=== PATIENT | female | born 1930 | race Caucasian/White ===

== ENCOUNTER 2017-09-24 03:50 | Inpatient (IN) | payer MEDICARE, OTHER ==
[2017-09-24] MEDS: SOD CHLORIDE 0.9% 1,000 ML IV ×2 (04:24→15:06)
[2017-09-24 04:28] LABS: ADD MAN DIFF? NO; BASOPHIL # 0.1 10^3/ul (0.0-0.1); BASOPHILS % 0.6 % (0.0-2.0); EOSINOPHILS # 0.2 10^3/ul (0.0-0.5); EOSINOPHILS % 1.3 % (0.0-7.0); LYMPHOCYTES # 3.4 10^3/ul (0.8-2.9); LYMPHOCYTES % 23.7 % (15.0-51.0); MEAN CORPUSCULAR HEMOGLOBIN 30.1 pg (29.0-33.0); MEAN CORPUSCULAR HGB CONC 32.3 g/dl (32.0-37.0); MEAN CORPUSCULAR VOLUME 93.4 fl (82.0-101.0); MEAN PLATELET VOLUME 10.7 fl (7.4-10.4); MONOCYTES % 6.9 % (0.0-11.0); NEUTROPHIL # 9.2 10^3/ul (1.6-7.5); NEUTROPHILS % 64.3 % (39.0-77.0); PLATELET COUNT 233 10^3/UL (140-415); RED BLOOD COUNT 3.32 10^6/ul (4.20-5.40); RED CELL DISTRIBUTION WIDTH 12.1 % (11.5-14.5)
[2017-09-24 04:28] LABS: WHITE BLOOD COUNT 14.3 10^3/ul (4.8-10.8)
[2017-09-24 04:47] LABS: INR 1.02; PROTIME 13.5 Sec (11.9-14.9); PT RATIO 1.1
[2017-09-24 04:48] LABS: PARTIAL THROMBOPLASTIN TIME 22.9 Sec (25.0-35.0)
[2017-09-24 04:52] LABS: ALANINE AMINOTRANSFERASE 15 IU/L (13-69); ALBUMIN 3.3 g/dl (3.3-4.9); ALBUMIN/GLOBULIN RATIO 1.03; ALKALINE PHOSPHATASE 61 IU/L (42-121); ANION GAP 16 (8-16); ASPARTATE AMINO TRANSFERASE 18 IU/L (15-46); BILIRUBIN,INDIRECT 0.3 mg/dl (0-1.1); BILIRUBIN,TOTAL 0.3 mg/dl (0.2-1.3); BLOOD UREA NITROGEN 73 mg/dl (7-20); CALCIUM 9.5 mg/dl (8.4-10.2); CARBON DIOXIDE 22 mmol/L (21-31); CHLORIDE 107 mmol/L (97-110); GLUCOSE 318 mg/dl (70-220); LIPASE 152 U/L (23-300); POTASSIUM 5.7 mmol/L (3.5-5.1); SODIUM 139 mmol/L (135-144); TOTAL PROTEIN 6.5 g/dl (6.1-8.1)
[2017-09-24] MEDS ORDERED: NITROGLYCERIN (SL) 0.4 MG TAB SL (10:00)
[2017-09-24] MEDS ORDERED: HYDROCODONE/APAP (5/325) TAB PO (10:00)
[2017-09-24] MEDS ORDERED: NACL 0.9% 3 ML SYG IV (10:00)
[2017-09-24] MEDS ORDERED: hydrALAzine 20 MG INJ IV (10:00)
[2017-09-24] MEDS ORDERED: DOCUSATE SODIUM 100 MG CAP PO (10:00)
[2017-09-24] MEDS ORDERED: MAGNESIUM HYDROXIDE 30ML CUP PO (10:00)
[2017-09-24] MEDS ORDERED: LORAZEPAM 2 MG INJ IV (10:00)
[2017-09-24] MEDS ORDERED: ALBUTEROL/IPRATROPIUM (NEB) 3 ML AMP HHN (10:00)
[2017-09-24] MEDS ORDERED: morphine 2 MG INJ IV (10:00)
[2017-09-24] MEDS ORDERED: NA PHOSPHATE/BIPHOS 133 ML ENEMA PR (10:00)
[2017-09-24] MEDS: NA POLYST SULFON 15 GM/60 ML BTL PO (10:09)
[2017-09-24] MEDS: PANTOPRAZOLE 40 MG INJ IV ×2 (10:09→17:18)
[2017-09-24] MEDS: SOD CHLORIDE 0.45% 1,000 ML IV (10:09)
[2017-09-24 11:04] LABS: INR 1.08; PROTIME 14.1 Sec (11.9-14.9); PT RATIO 1.1
[2017-09-24 11:05] LABS: PARTIAL THROMBOPLASTIN TIME 25.9 Sec (25.0-35.0)
[2017-09-24 11:39] LABS: FREE T4 (FREE THYROXINE) 0.83 ng/dl (0.85-1.93)
[2017-09-24] MEDS: ONDANSETRON 4 MG INJ IV (12:57)
[2017-09-24] MEDS: INSULIN ASPART [NOVOLOG] 3 ML PEN SC ×3 (13:11→20:02)
[2017-09-24] MEDS ORDERED: GLUCOSE GEL 15 GRAM TUBE PO ×2 (15:00)
[2017-09-24] MEDS ORDERED: DEXTROSE 50% 50 ML SYRINGE IV ×2 (15:00)
[2017-09-24] MEDS ORDERED: GLUCOSE GEL 15 GRAM TUBE BUCCAL (15:00)
[2017-09-24] MEDS ORDERED: GLUCAGON 1 MG INJ IM (15:00)
[2017-09-24 15:10] LABS: HEMATOCRIT 24.3 % (37.0-47.0)
[2017-09-24] MEDS: METOCLOPRAMIDE (1 MG/ML) 10 ML CUP PO (19:59)
[2017-09-24] MEDS: INSULIN GLARGINE [LANTus] (100 UNITS/ML) SYG SC (20:04)
[2017-09-24] MEDS: ATORVASTATIN 10 MG TAB PO (20:56)
[2017-09-24 22:46] LABS: HEMATOCRIT 21.1 % (37.0-47.0)
[2017-09-24 23:02] LABS: ANION GAP 9 (8-16); BLOOD UREA NITROGEN 81 mg/dl (7-20); CALCIUM 8.1 mg/dl (8.4-10.2); CARBON DIOXIDE 21 mmol/L (21-31); CHLORIDE 116 mmol/L (97-110); GLUCOSE 126 mg/dl (70-220); POTASSIUM 4.5 mmol/L (3.5-5.1); SODIUM 141 mmol/L (135-144)
[2017-09-25] MEDS: SOD CHLORIDE 0.9% 1,000 ML IV ×4 (00:05→21:43)
[2017-09-25] MEDS: METOCLOPRAMIDE (1 MG/ML) 10 ML CUP PO ×4 (00:05→17:34)
[2017-09-25] MEDS: INSULIN ASPART [NOVOLOG] 3 ML PEN SC ×6 (00:09→20:18)
[2017-09-25 05:06] LABS: ADD MAN DIFF? NO
[2017-09-25] MEDS: PANTOPRAZOLE 40 MG INJ IV ×2 (05:06→17:34)
[2017-09-25] MEDS: ACETAMINOPHEN 325 MG TAB PO (05:06)
[2017-09-25 05:21] LABS: BASOPHIL # 0.1 10^3/ul (0.0-0.1); BASOPHILS % 0.5 % (0.0-2.0); EOSINOPHILS # 0.2 10^3/ul (0.0-0.5); EOSINOPHILS % 1.5 % (0.0-7.0); HEMATOCRIT 21.4 % (37.0-47.0); LYMPHOCYTES # 4.3 10^3/ul (0.8-2.9); MEAN CORPUSCULAR HEMOGLOBIN 30.4 pg (29.0-33.0); MEAN CORPUSCULAR HGB CONC 32.7 g/dl (32.0-37.0); MONOCYTE # 0.9 10^3/ul (0.3-0.9); MONOCYTES % 6.6 % (0.0-11.0); NEUTROPHIL # 8.2 10^3/ul (1.6-7.5); NEUTROPHILS % 58.5 % (39.0-77.0); PLATELET COUNT 106 10^3/UL (140-415); RED CELL DISTRIBUTION WIDTH 12.4 % (11.5-14.5)
[2017-09-25 05:26] LABS: ADD UMIC YES; UR ASCORBIC ACID NEGATIVE (NEGATIVE); UR BACTERIA MODERATE /HPF (NONE SEEN); UR BILIRUBIN (Dip) NEGATIVE (NEGATIVE); UR BLOOD (Dip) NEGATIVE (NEGATIVE); UR CLARITY CLEAR (CLEAR); UR COLOR YELLOW (YELLOW); UR GLUCOSE (Dip) 1+ mg/dL (NEGATIVE); UR KETONES (Dip) NEGATIVE (NEGATIVE); UR LEUKOCYTE ESTERASE (Dip) TRACE Leu/ul (NEGATIVE); UR MUCUS FEW /HPF (NONE SEEN); UR NITRITE (Dip) NEGATIVE (NEGATIVE); UR RBC 1 /HPF (0-5); UR SPECIFIC GRAVITY (Dip) 1.015 (1.003-1.030); UR TOTAL PROTEIN (Dip) NEGATIVE (NEGATIVE); UR UROBILINOGEN (Dip) NEGATIVE (NEGATIVE); UR WBC 10 /HPF (0-5)
[2017-09-25 05:37] LABS: IMMEDIATE SPIN CROSSMATCH 1 1
[2017-09-25 05:43] LABS: HEMOGLOBIN A1C 8.8 % (0-5.9)
[2017-09-25 05:52] LABS: ANION GAP 8 (8-16); BLOOD UREA NITROGEN 74 mg/dl (7-20); CARBON DIOXIDE 21 mmol/L (21-31); CHLORIDE 119 mmol/L (97-110); CHOL/HDL RATIO 5.6 RATIO; CHOLESTEROL 85 mg/dl (100-200); CREATININE 1.14 mg/dl (0.44-1.00); GLUCOSE 82 mg/dl (70-220); HDL CHOLESTEROL 15 mg/dl (33-92); LDL CHOLESTEROL,CALCULATED 27 mg/dl; PHOSPHORUS 3.5 mg/dl (2.5-4.9); POTASSIUM 4.8 mmol/L (3.5-5.1); SODIUM 143 mmol/L (135-144); TRIGLYCERIDES 214 mg/dl (0-149)
[2017-09-25] MEDS: DULOXETINE 30 MG CAP DR PO (08:10)
[2017-09-25] MEDS: MULTIVITAMINS THERAPEUTIC TAB PO (08:10)
[2017-09-25] MEDS: SOLIFENACIN 5 MG TAB PO (08:10)
[2017-09-25 10:07] LABS: LACTIC ACID 1.2 mmol/L (0.5-2.0)
[2017-09-25 11:58] LABS: HEMATOCRIT 27.9 % (37.0-47.0); HEMOGLOBIN 9.2 g/dl (12.0-16.0)
[2017-09-25] MEDS: CEFTRIAXONE 1 GM/50 ML (PMX) 50 ML IVPB (12:23)
[2017-09-25] MEDS: SUCRALFATE (100 MG/ML) 10ML CUP PO ×2 (17:34→20:18)
[2017-09-25 18:28] LABS: HEMATOCRIT 26.8 % (37.0-47.0)
[2017-09-25] MEDS: ATORVASTATIN 10 MG TAB PO (20:18)
[2017-09-25] MEDS: INSULIN GLARGINE [LANTus] (100 UNITS/ML) SYG SC (20:50)
[2017-09-26] MEDS: METOCLOPRAMIDE (1 MG/ML) 10 ML CUP PO ×2 (00:02→05:18)
[2017-09-26] MEDS: PANTOPRAZOLE 40 MG INJ IV (05:18)
[2017-09-26] MEDS: SOD CHLORIDE 0.9% 1,000 ML IV (06:30)
[2017-09-26] MEDS: INSULIN ASPART [NOVOLOG] 3 ML PEN SC (07:57)
[2017-09-26] MEDS: MULTIVITAMINS THERAPEUTIC TAB PO (08:02)
[2017-09-26] MEDS: SUCRALFATE (100 MG/ML) 10ML CUP PO (08:03)
[2017-09-26] MEDS: SOLIFENACIN 5 MG TAB PO (08:03)
[2017-09-26] MEDS: DULOXETINE 30 MG CAP DR PO (08:03)
[2017-09-26 08:39] LABS: ADD MAN DIFF? NO
[2017-09-26 08:47] LABS: WHITE BLOOD COUNT 8.3 10^3/ul (4.8-10.8)
[2017-09-26 08:47] LABS: BASOPHILS % 0.5 % (0.0-2.0); EOSINOPHILS # 0.1 10^3/ul (0.0-0.5); EOSINOPHILS % 1.6 % (0.0-7.0); HEMATOCRIT 27.2 % (37.0-47.0); HEMOGLOBIN 8.9 g/dl (12.0-16.0); LYMPHOCYTES # 1.8 10^3/ul (0.8-2.9); LYMPHOCYTES % 21.7 % (15.0-51.0); MEAN CORPUSCULAR HEMOGLOBIN 30.7 pg (29.0-33.0); MEAN CORPUSCULAR HGB CONC 32.7 g/dl (32.0-37.0); MEAN CORPUSCULAR VOLUME 93.8 fl (82.0-101.0); MEAN PLATELET VOLUME 10.5 fl (7.4-10.4); MONOCYTE # 0.6 10^3/ul (0.3-0.9); MONOCYTES % 6.8 % (0.0-11.0); NEUTROPHIL # 5.7 10^3/ul (1.6-7.5); NEUTROPHILS % 68.4 % (39.0-77.0); RED CELL DISTRIBUTION WIDTH 13.3 % (11.5-14.5)
[2017-09-26 08:50] LABS: PLATELET COUNT 151 10^3/UL (140-415); POSITIVE DIFF @See below
[2017-09-26 09:11] LABS: ANION GAP 8 (8-16); BLOOD UREA NITROGEN 30 mg/dl (7-20); CALCIUM 8.1 mg/dl (8.4-10.2); CARBON DIOXIDE 19 mmol/L (21-31); CHLORIDE 119 mmol/L (97-110); CREATININE 0.92 mg/dl (0.44-1.00); GLUCOSE 87 mg/dl (70-220); POTASSIUM 4.2 mmol/L (3.5-5.1); SODIUM 142 mmol/L (135-144)
== END 2017-09-26 12:12 | disposition left against medical advice (07) | DRG 378 ==
LOC: E/R 03:50 → MS4 07:56
PROC: 30233N1 Transfusion of Nonautologous Red Blood Cells into Peripheral Vein, Percutaneous Approach (ICD-10-PCS; principal; 2017-09-25)
DX: K25.4 Chronic or unspecified gastric ulcer with hemorrhage (principal); D62 Acute posthemorrhagic anemia; E11.9 Type 2 diabetes mellitus without complications; I10 Essential (primary) hypertension; E78.00 Pure hypercholesterolemia, unspecified
CPT/HCPCS: 36415; 36430; 71045; 74176; 80048; 80053; 80061; 81001; 82962; 83036; 83605; 83690; 83735; 84100; 84439; 84443; 84484; 85014; 85018; 85025; 85610; 85730; 86850; 86900; 86901; 86920; 87040; 87086; 93005; 93306; 97162; 99291-25